=== PATIENT | male | born 1960 | race Caucasian/White ===

== ENCOUNTER 2020-07-27 15:36 | Inpatient (IN) | payer BC ==
[~2020-07-27] VITALS: Ht 177.8 cm; Wt 94.0 kg
[2020-07-27] VITALS (116 sets, daily range): BP systolic 110–140; BP diastolic 81–108; PULSE 104–128; TEMP 98.3–98.7; O2SAT 94–100
[2020-07-27 15:57] LABS: BASO # 0.1 (0.0-0.2); BASO % 1.2 % (0.0-2.0); EOS # 0.2 (0.0-0.7); EOS % 1.8 % (0-4.0); GRAN # 5.5 (1.4-6.5); GRAN % 58.5 % (42.2-75.2); HEMATOCRIT 51.5 % (42.0-52.0); HEMOGLOBIN 17.3 g/dl (13.5-18.0); LYMPH # 2.7 (1.2-3.4); LYMPH % 28.9 % (20.0-51.0); MEAN CELL VOLUME 94 fl (80.0-100.0); MEAN CORPUSCULAR HEMOGLOBIN 32 pg (27.0-31.0); MEAN CORPUSCULAR HGB CONC 34 g/dl (33.0-37.0); MEAN PLATELET VOLUME 9.7 fl (7.4-10.4); MONO # 0.9 (0.1-0.6); MONO % 9.2 % (1.7-9.3); PLATELET COUNT 244 K/mm3 (130-400); RED BLOOD COUNT 5.48 M/mm3 (4.20-5.60); REDCELL DISTRIBUTION WIDTH-CV 13.8 % (11.5-14.5)
[2020-07-27] MEDS ORDERED: XARELTO20 MG PO (15:58)
[2020-07-27] MEDS ORDERED: COREG 6.256.25 MG/TA PO (15:58)
[2020-07-27] MEDS ORDERED: LASIX 20MG TABL20 MG PO (15:58)
[2020-07-27] MEDS ORDERED: PRINIVIL10 MG PO (15:59)
[2020-07-27 16:08] LABS: INR 1.2 (0.8-3.0); PARTIAL THROMBOPLASTIN TIME 36.6 SECONDS (26.0-37.0); PROTHROMBIN TIME 13.9 SECONDS (9.7-12.8)
[2020-07-27 16:09] LABS: ALANINE AMINOTRANSFERASE 36 U/L (4-49); ALBUMIN 4.7 gm/dL (3.5-5.0); ALKALINE PHOSPHATASE 61 U/L (50-136); ANION GAP 10 mmol/L (7-16); AST,SGOT 34 U/L (15-37); BILIRUBIN,TOTAL 0.9 mg/dL (0.0-1.0); BLOOD UREA NITROGEN 21 mg/dL (9-20); CALCIUM 9.6 mg/dL (8.4-10.2); CARBON DIOXIDE 27 mmol/L (22-30); CHLORIDE 101 mmol/L (98-107); CREATININE, serum 1.05 (0.66-1.25); GLUCOSE 124 mg/dL (74-106); MAGNESIUM 2.1 mg/dL (1.6-2.3); POTASSIUM 5.1 mmol/L (3.4-5.0); SODIUM 138 mmol/L (137-145)
[2020-07-27 16:20] LABS: TROPONIN-I < 0.012 ng/mL (0.000-0.035)
[2020-07-28] VITALS (574 sets, daily range): BP systolic 103–146; BP diastolic 70–107; PULSE 74–118; TEMP 97.7–98.7; O2SAT 87–100
--- NOTE | 2020-07-28 01:52 | NUR ---
Patient had a PTT lab draw at midnight, the results were very high so I redrew the labs. At 1am, the PTT results was 133.7, I called Clotilde LIU and she said to follow the protocal. The pump was running at 1700 ml/hr although the computer reflected it was running at 1800 ml/hr. I knew I must decrease the pump results by 100. So it was decreased from 1700 to 1600 and I refected the computer EMAR to 1600 as well. My heprin changes was verified by Amado CRISTOBAL.
--- NOTE | 2020-07-28 07:06 | NUR ---
Patient had an unenventful night, he didn't complain of any chest pain or shortness of breath. He's blood pressure has been in the 120's and heart rate ranges from 90's to 120's. He was asleep most of the night. Morning PTT was drawn and pending results. Report was given to Radha CRISTOBAL.
--- NOTE | 2020-07-28 07:15 | NUR ---
RECEIVED REPORT FROM SUSU FORTE. PT RESTING EASILY ON RA. VSS. CALL LIGHT AND URINAL WITHIN REACH. DENIES ANY CP/PRESSURE AT THIS TIME.
[2020-07-28 07:18] LABS: CREATININE, serum 0.78 (0.66-1.25); POTASSIUM 4.1 mmol/L (3.4-5.0)
[2020-07-28 09:16] LABS: BASO # 0.1 (0.0-0.2); BASO % 1.2 % (0.0-2.0); EOS # 0.2 (0.0-0.7); GRAN # 3.9 (1.4-6.5); HEMATOCRIT 48.1 % (42.0-52.0); HEMOGLOBIN 15.7 g/dl (13.5-18.0); LYMPH # 2.6 (1.2-3.4); LYMPH % 34.5 % (20.0-51.0); MEAN CELL VOLUME 96 fl (80.0-100.0); MEAN CORPUSCULAR HEMOGLOBIN 31 pg (27.0-31.0); MEAN CORPUSCULAR HGB CONC 33 g/dl (33.0-37.0); MEAN PLATELET VOLUME 10.7 fl (7.4-10.4); MONO # 0.8 (0.1-0.6); PLATELET COUNT 193 K/mm3 (130-400); RED BLOOD COUNT 5.03 M/mm3 (4.20-5.60)
--- NOTE | 2020-07-28 10:34 | NUR ---
DAVIDA attended clinical rounds. The patient is to have a heart cath and cardioversion today. DAVIDA then met with the patient to discuss discharge plan. The patient lives alone in [place]. He reports independence with ADLs and does not have any DME. The patient's PCP is Dr. Alexandra Allan and he receives his medications from [facility]. He reports occasional difficulties affording his meds. DAVIDA informed the patient of [employer]. The patient does not hav a DPOA-HC, but he was interested in completing a DPOA-HC. DAVIDA provided the form. The patient designated his brother, Mazin Galarza (ph#[phone]). DAVIDA and RN, Robbin, witnessed the patient's signature. The patient was provided with the original and some copies. DAVIDA placed a copy in the patient's chart. Mazin lives in [place]. The patient plans to return home upon discharge. No additional needs at this time.
--- NOTE | 2020-07-28 10:44 | NUR ---
SEE MERGE DOCUMENTATION FOR MEDICATION ADMINISTRATION AND INTRA/POST PROCEDURE SEDATION ASSESSMENTS. RIGHT HAND BARBEAU TEST POSITIVE. MD AWARE OF LAST XARELTO DOSING. RAPID COVID SWAB COMPLETED AND RESULT BEFORE ARRIVAL TO CCL.
--- NOTE | 2020-07-28 12:47 | NUR ---
RECEIVED REPORT FROM SUSU CEJA IN ACCOUNTS RECEIVABLE COLLECTOR. AWAITING ARRIVAL OF PT BACK TO ICU 8.
--- NOTE | 2020-07-28 12:55 | NUR ---
PT ARRIVES BACK FROM [facility] ND PLACED ON BEDSIDE CONTINUOUS MONITOR. PT TO PRINT LINE INSPECTOR WITH BRENNA RN AT 1015. RT WRIST CATH SITE LOOKS AND HAS A TR BAND IN PLACE. PER REPORT, NO AIR HAS BEEN RELEASED FROM SITE AND PER DR KEMP HE WOULD LIKE NOT TO START RELEASING ANY AIR UNTIL FOUR HOURS POST, TR BAND PLACED AT 1100. PT DENIES ANY CP/PRESSURE UPON ARRIVAL TO UNIT. PT ON RA. SEE GTT FLOWSHEET. CALL LIGHT AND URINAL WITHIN REACH.
[2020-07-28 14:07] LABS: PARTIAL THROMBOPLASTIN TIME > 400.0 SECONDS (26.0-37.0)
--- NOTE | 2020-07-28 14:59 | NUR ---
Silviculture Teacher prayed for patient outside of door, did not want to wake them up.
[2020-07-28 16:43] LABS: PARTIAL THROMBOPLASTIN TIME 49.9 SECONDS (26.0-37.0)
[2020-07-29] VITALS (300 sets, daily range): BP systolic 103–122; BP diastolic 54–77; PULSE 67–74; TEMP 97.5–98.8; O2SAT 82–99
--- NOTE | 2020-07-29 02:47 | NUR ---
I received report from SUSU Harman. The patient is comfortable and vitals are stable. I was told the plan for tomorrow he will be switched to oral medicine instead of the amiodarone and heprin drip.
[2020-07-29 05:43] LABS: HEMATOCRIT 46.2 % (42.0-52.0); HEMOGLOBIN 15.7 g/dl (13.5-18.0); MEAN CELL VOLUME 92 fl (80.0-100.0); MEAN CORPUSCULAR HEMOGLOBIN 31 pg (27.0-31.0); MEAN CORPUSCULAR HGB CONC 34 g/dl (33.0-37.0); MEAN PLATELET VOLUME 9.9 fl (7.4-10.4); PLATELET COUNT 187 K/mm3 (130-400); RED BLOOD COUNT 5.01 M/mm3 (4.20-5.60); REDCELL DISTRIBUTION WIDTH-CV 13.7 % (11.5-14.5)
--- NOTE | 2020-07-29 12:50 | NUR ---
called and gave report to SUSU Ambrose on medical floor. Patient will be going to room 316 on telemetry.
--- NOTE | 2020-07-29 13:43 | NUR ---
VISITED PT IN ROOM, PT AOX4, ASSESSMENT PERFORMED,HEPARIN DRIP RUNNING AT 15.5ML/HR PER REPORT, ICE WATER BROUGHT IN, BOTH IV SITES CDI W/O ERYTHEMA, NO OTHER NEEDS.
--- NOTE | 2020-07-29 16:39 | NUR ---
DISCONNECTED PT FROM HEPARIN AND XARELTO GIVEN. EDUCATED ON INC BLEEDING W/ FALL SIDE EFFECT. PT VERBALIZES UNDERSTANDING AND WISHES TO SHOWER LATER, FRESH ICE WATER BROUGHT IN.
--- NOTE | 2020-07-29 17:25 | NUR ---
HEPARIN DISCONNECTED FROM PT, PT DENYING CHEST PAIN AND ANY OTHER PAIN, PT PLEASANT, NO OTHER NEEDS
[2020-07-30 03:53] VITALS: BP 105/59; PULSE 65; TEMP 98.1
--- NOTE | 2020-07-30 05:25 | NUR ---
Patient slept well throughout the night with no complaints of pain or nausea. VSS. Sinus Rhythm on tele. Patient up to use bathroom several times throughout the night. INT to L wrist and L antecubital. Bandaid on R wrist from cardiac cath clean, dry, and intact. Will report off to day shift.
[2020-07-30 07:09] LABS: CALCIUM 9.1 mg/dL (8.4-10.2); CREATININE, serum 0.92 (0.66-1.25); MAGNESIUM 2.1 mg/dL (1.6-2.3); POTASSIUM 3.6 mmol/L (3.4-5.0)
[2020-07-30 09:01] VITALS: BP 102/55; PULSE 69; TEMP 97.3
[2020-07-30 12:08] VITALS: BP 130/71; PULSE 79; TEMP 97.9
[2020-07-30 15:48] VITALS: BP 127/74; PULSE 72; TEMP 97.5
[2020-07-30] MEDS ORDERED: ENTRESTO 24 MG1 EACH PO (16:49)
[2020-07-30] MEDS ORDERED: CORDARONE200 MG/TAB PO ×2 (16:53)
== END 2020-07-30 17:00 | disposition home or self-care (01) | DRG 308 ==
LOC: COL.ER 15:36 → ICU 15:57 → MEDICAL 07-29 13:53
PROVIDERS: Emergency Medicine; Internal Medicine Adult Congenital Heart Disease; ADMIT Internal Medicine
PROC: 5A2204Z Restoration of Cardiac Rhythm, Single (ICD-10-PCS; principal; 2020-07-28)
DX: I48.91 Unspecified atrial fibrillation (principal); I50.23 Acute on chronic systolic (congestive) heart failure; E87.5 Hyperkalemia; I11.0 Hypertensive heart disease with heart failure; K21.9 Gastro-esophageal reflux disease without esophagitis; E78.5 Hyperlipidemia, unspecified; I42.9 Cardiomyopathy, unspecified; Z79.01 Long term (current) use of anticoagulants; Z20.822 Contact with and (suspected) exposure to COVID-19
CPT/HCPCS: 99223-AI; 99232-AI; 99233-AI; 99239; J0282; J1644; J1940; J2250; J3010; J7060; Q9967

== ENCOUNTER 2024-01-19 06:55 | Emergency (ER) | payer SELFPAY ==
[~2024-01-19] VITALS: Ht 177.8 cm; Wt 113.6 kg
[~2024-01-19 06:55] MED LIST: CORDARONE200 MG/TAB PO; COREG 6.256.25 MG/TA PO; ENTRESTO 24 MG1 EACH PO; LASIX 20MG TABL20 MG PO; PRINIVIL10 MG PO; XARELTO20 MG PO
[2024-01-19 07:04] VITALS: TEMP 97.9
[2024-01-19] MEDS ORDERED: Pantoprazole 40 MG in NS 10 ML IV ONE (07:30)
[2024-01-19] MEDS ORDERED: Mag/Al Hydrox/Simeth Susp 30 ML CUP PO ONE (07:30)
[2024-01-19] MEDS ORDERED: NS 1,000 ML IV ONE (07:30)
[2024-01-19 07:34] LABS: BASO # 0.1 K/mm3 (0.0-0.2); BASO % 0.6 % (0.0-2.0); EOS # 0.1 K/mm3 (0.0-0.7); EOS % 0.7 % (0.0-4.0); GRAN # 8.2 K/mm3 (1.4-6.5); GRAN % 66.4 % (42.2-75.2); HEMATOCRIT 47.5 % (42.0-52.0); HEMOGLOBIN 17.2 g/dl (13.5-18.0); LYMPH # 2.8 K/mm3 (1.2-3.4); LYMPH % 22.5 % (20.0-51.0); MEAN CELL VOLUME 85 fl (80.0-100.0); MEAN CORPUSCULAR HEMOGLOBIN 31 pg (27-31); MEAN CORPUSCULAR HGB CONC 36 g/dl (33.0-37.0); MEAN PLATELET VOLUME 9.6 fl (7.4-10.4); MONO # 1.2 K/mm3 (0.1-0.6); MONO % 9.4 % (1.7-9.3); PLATELET COUNT 194 K/mm3 (130-400); RED BLOOD COUNT 5.56 M/mm3 (4.20-5.60)
[2024-01-19 07:50] LABS: PH 6.5 (5.0-8.5); URINE APPEARANCE Clear (CLEAR/HAZY); URINE BLOOD Negative (NEGATIVE); URINE COLOR YELLOW (YELLOW); URINE GLUCOSE Negative (NEGATIVE); URINE KETONE Negative (NEGATIVE); URINE NITRATE Negative (NEGATIVE); URINE PROTEIN(semi-quant) Negative (BEGATIVE); URINE UROBILINOGEN 0.2 E.U/dL (0.2-1.0)
[2024-01-19 07:51] LABS: COLLECTION METHOD CLEAN CATCH
[2024-01-19 08:02] LABS: ALBUMIN 4.1 g/dL (3.4-4.8); BILIRUBIN,TOTAL 1.1 mg/dL (0.2-1.2); CALCIUM 9.9 mg/dL (8.4-10.2); CREATININE, serum 0.84 mg/dL (0.72-1.25); POTASSIUM 3.4 mEq/L (3.5-4.5); TOTAL PROTEIN 7.3 g/dl (6.2-8.1)
[2024-01-19] MEDS ORDERED: Iohexol 300 - 100 ML VIAL IV ONE (08:21)
[2024-01-19] MEDS ORDERED: NS 100 ML IV SCH (08:22)
[2024-01-19] MEDS ORDERED: PROTONIX 40MG T40 MG PO (09:49)
[2024-01-19 10:30] VITALS: BP 133/80; PULSE 95
== END 2024-01-19 10:32 | disposition home or self-care (01) ==
LOC: COL.ER 06:55
PROVIDERS: Personal Emergency Response Attendant
DX: R14.0 Abdominal distension (gaseous) (principal); R06.00 Dyspnea, unspecified; R42 Dizziness and giddiness; K21.9 Gastro-esophageal reflux disease without esophagitis
CPT/HCPCS: J2470; J7030; Q9967